=== PATIENT | male | born 1995 | race Caucasian/White ===

== ENCOUNTER 2019-04-21 04:29 | Emergency (ER) | payer SELFPAY ==
[~2019-04-21] VITALS: Ht 182.9 cm; Wt 97.1 kg
[2019-04-21 04:52] VITALS: BP 121/65
--- NOTE | 2019-04-21 04:52 | NUR ---
TO BED # 03 AMBULATORY
[2019-04-21 04:57] VITALS: BP 121/65
--- NOTE | 2019-04-21 04:57 | NUR ---
23 Y/O M PRESENTED TO ED S/P SLIP AND FALL. AAOX4. SPEECH CLEAR AND COHERANT. PERRL PRESENT. CALM MOOD, BEHAVIOR APPROPIATE. PER PT "I WAS AT [employer] WITH SOME FRIENDS AND I JUST GOT TOO CLOSE TO THE EDGE. I SLIPPED ON THE GRAVEL AND FEEL FACE FIRST." LACERATION NOTED TO L EYEBROW. BLEEDING CONTROLLED. ABRASIONS TO CHIN AND NECK. BEDRAIL X1 UP. BED IN LOWEST POSTION AND LOCKED. ERMD MADE OF PT STATUS. WILL CONTINUE TO MONITOR.
[2019-04-21] MEDS: LIDOCAINE 1% ***ER ONLY *** 10 MG/ML VIAL INJ ONE (05:46)
[2019-04-21] MEDS ORDERED: LIDOCAINE MPF 1% - 5 mL VIAL 5 ML ONE (05:47)
[2019-04-21] MEDS: LIDOCAINE MPF 1% 5mL VIAL INJ ONE (05:49)
[2019-04-21] MEDS: BACITRACIN OINT 500 UNITS/GM PKT TP ONE (05:49)
== END 2019-04-21 06:19 | disposition home or self-care (01) ==
LOC: MED 04:29
DX: S01.81XA Laceration without foreign body of other part of head, initial encounter (principal); F17.210 Nicotine dependence, cigarettes, uncomplicated; Z98.890 Other specified postprocedural states; W18.39XA Other fall on same level, initial encounter; Y93.89 Activity, other specified; Y92.89 Other specified places as the place of occurrence of the external cause; Y99.8 Other external cause status
CPT/HCPCS: 12011; 99283; J2001

== ENCOUNTER 2019-05-08 17:30 | Emergency (ER) | payer SELFPAY ==
[~2019-05-08] VITALS: Ht 182.9 cm; Wt 114.9 kg
[2019-05-08 17:33] VITALS: BP 122/72
--- NOTE | 2019-05-08 17:40 | NUR ---
PT AMB TO BED 5
--- NOTE | 2019-05-08 17:45 | NUR ---
C/O RASH COVERING WHOLE BODY &ITCHING X YESTERDAY. PATIETN STATES THIS RASH APPEARED LAST YEAR WHEN HE HAD AN OUTBREAK OF SYPHILIS. AA0X4. BED IS DWON, LOCKED, BED RAIL X 1, ERMD TO SEE PT. MED HX:DENIES
--- NOTE | 2019-05-08 18:15 | NUR ---
DR FUNES AT BEDSIDE
[2019-05-08] MEDS ORDERED: PENICILLIN G BENZATHINE L-A 1.2 MU/2 ML SYR IM ONE (18:20)
--- NOTE | 2019-05-08 18:45 | NUR ---
PT REQUESTING MORPHINE AFTER IM INJECTIONS
[2019-05-08] MEDS ORDERED: MORPHINE SULFATE 4 MG/ML SYR IM ONE (18:50)
[2019-05-08 18:59] VITALS: BP 120/75
--- NOTE | 2019-05-08 19:00 | NUR ---
Patient discharged with v/s stable. Written and verbal after care instructions given and explained. Patient alert, oriented and verbalized understanding of instructions. Ambulatory with steady gait. All questions addressed prior to discharge. ID band removed. Patient advised to follow up with PMD. Rx of EPIPEN FOR TOMATOE ALLERGY given. Patient educated on indication of medication including possible reaction and side effects. Opportunity to ask questions provided and answered.
== END 2019-05-08 19:00 | disposition home or self-care (01) ==
LOC: MED 17:30
DX: R21 Rash and other nonspecific skin eruption (principal); F17.210 Nicotine dependence, cigarettes, uncomplicated; Z86.19 Personal history of other infectious and parasitic diseases; Z98.890 Other specified postprocedural states
CPT/HCPCS: 96372; 99283; J0561; J2270

== ENCOUNTER 2019-06-14 22:22 | Emergency (ER) | payer SELFPAY ==
[~2019-06-14] VITALS: Ht 182.9 cm; Wt 108.9 kg
[2019-06-14 22:33] VITALS: BP 118/73
== END 2019-06-15 00:20 | disposition left against medical advice (07) ==
LOC: MED 22:22
DX: L29.9 Pruritus, unspecified (principal); Z53.21 Procedure and treatment not carried out due to patient leaving prior to being seen by health care provider